=== PATIENT | male | born 1950 | race Caucasian/White ===

== ENCOUNTER 2018-11-21 10:33 | Emergency (ER) | payer OTHER, MEDICARE ==
[~2018-11-21] VITALS: Ht 182.9 cm; Wt 106.6 kg
[2018-11-21] MEDS ORDERED: IBUP800 PO (12:56)
[2018-11-21] MEDS ORDERED: Robaxin-750750 MG PO (12:56)
== END 2018-11-21 13:07 | disposition home or self-care (01) ==
LOC: ER 10:33
DX: M25.511 Pain in right shoulder (principal); M25.521 Pain in right elbow; W01.0XXA Fall on same level from slipping, tripping and stumbling without subsequent striking against object, initial encounter; Z88.8 Allergy status to other drugs, medicaments and biological substances; Z91.013 Allergy to seafood; I10 Essential (primary) hypertension; E11.9 Type 2 diabetes mellitus without complications; F41.9 Anxiety disorder, unspecified
CPT/HCPCS: 73030; 73080; 99283-25

== ENCOUNTER 2020-04-29 16:36 | Inpatient (IN) | payer OTHER ==
[~2020-04-29] VITALS: Ht 182.9 cm; Wt 107.4 kg
[~2020-04-29 16:36] MED LIST: IBUP800 PO; Robaxin-750750 MG PO
[2020-04-29 17:27] LABS: BASOPHILS ABSOLUTE AUTO 0.04 K/mm3 (0.00-0.23); BASOPHILS PERCENT AUTO 0 % (0-2); EOSINOPHILS PERCENT AUTO 0 % (0-6); Hematocrit 35.6 % (37.0-53.0); IMMATURE GRAN ABSOLUTE AUTO 0.12 K/mm3 (0.00-0.10); IMMATURE GRAN PERCENT AUTO 1 % (0-1); LYMPHOCYTES ABSOLUTE AUTO 0.73 K/mm3 (0.84-5.20); LYMPHOCYTES PERCENT AUTO 6 % (21-46); MONOCYTES ABSOLUTE AUTO 0.95 K/mm3 (0.16-1.47); MONOCYTES PERCENT AUTO 7 % (4-13); Mean Corpuscular HGB 29.9 pg (26.0-34.0); Mean Corpuscular HGB Conc 33.7 g/dL (31.5-36.5); Mean Corpuscular Volume 89 fL (80-100); NEUTROPHILS ABSOLUTE AUTO 11.49 K/mm3 (1.96-9.15); NEUTROPHILS PERCENT AUTO 86 % (41-73); Platelet Count 183 K/mm3 (150-400); RDW Coefficient Variation 13.8 % (11.7-14.2); Red Blood Cell Count 4.02 M/mm3 (4.30-5.90); White Blood Cell Count 13.33 K/mm3 (4.00-11.30)
[2020-04-29 17:49] LABS: Alanine Aminotransfer (ALT/SGP 48 U/L (12-78); Albumin, Blood 3.1 g/dL (3.4-5.0); Albumin/Globulin Ratio 0.9 (0.8-1.8); Alk Phos 66 U/L (50-136); Anion Gap 9 mmol/L (6-16); Aspartate Aminotrans (AST/SGOT 26 U/L (12-37); Bilirubin, Total 1.1 mg/dL (0.1-1.0); Blood Urea Nitrogen 13 mg/dL (8-24); Bun/Creatinine Ratio 14.2 (12.0-20.0); CO2, Blood 23 mmol/L (21-32); Calcium, Blood 7.9 mg/dL (8.5-10.1); Chloride, Blood 102 mmol/L (98-108); Creatinine, Blood 0.92 mg/dL (0.60-1.20); Globulin, Blood 3.5 g/dL (2.2-4.0); Glomerular Filtration Rate >60 (60-); Glucose, Blood 249 mg/dL (70-99); Magnesium, Blood 1.4 mg/dL (1.6-2.4); Potassium, Blood 3.7 mmol/L (3.5-5.5); Sodium, Blood 134 mmol/L (136-145); Total Protein, Blood 6.6 g/dL (6.4-8.2)
[2020-04-29 17:57] LABS: Source, Urine Clean Catch
[2020-04-29 18:03] LABS: Appearance, Urine Hazy (Clear); Bilirubin, Urine Neg (Neg); Blood, Urine 4+ (Neg); Color, Urine Amber (P-Yellow); Glucose Qualitative, Urine 3+ (Neg); Ketones, Urine 3+ (Neg); Leukocyte Esterase, Urine 3+ (Neg); Nitrite, Urine Neg (Neg); Protein, Urine 3+ (Neg); Specific Gravity, Urine 1.025 (1.003-1.022); Urobilinogen, Urine 1+ (Normal)
[2020-04-29 18:21] LABS: Red Blood Cells, Urine 25-50 /hpf (0-2); White Blood Cells, Urine 50-100 /hpf (0-5)
[2020-04-29 18:22] LABS: Bacteria Mod /hpf; Squamous Epithelial Cells Not Seen /hpf (Few)
[2020-04-29] MEDS ORDERED: PRALUENT P75 MG/1 ML (20:12)
[2020-04-29] MEDS ORDERED: Aspir 8181 MG PO (20:13)
[2020-04-29] MEDS ORDERED: ALPR.5 (20:13)
[2020-04-29] MEDS ORDERED: VITAMIN D325 MC3 PO (20:14)
[2020-04-29] MEDS ORDERED: Lisinopril-Hct1 EAC4 PO (20:17)
[2020-04-29] MEDS ORDERED: BASAGLAR K100 UNIT/1 SC (20:18)
[2020-04-29] MEDS ORDERED: METF500 PO (20:19)
[2020-04-29] MEDS ORDERED: TRAZ150T57 PO (20:20)
[2020-04-29] MEDS ORDERED: OMEP20ER PO (20:20)
[2020-04-29] MEDS ORDERED: METO25ER PO (20:20)
--- NOTE | 2020-04-29 23:42 | NUR ---
PHYSICIAN COMMUNICATION CONTACTED PATIENT'S ADMITTING PHYSICIAN, DR BARNES, TO NOTIFY HIM THAT THE PATIENT WISHED TO HAVE HIS 50 UNITS LANTUS SC THAT HE TYPICALLY TAKES AT BEDTIME. DR BARNES ORDERED THE LANTUS.
--- NOTE | 2020-04-30 04:13 | NUR ---
PHYSICIAN COMMUNICATION CONTACTED LEAD EMBEDDED SOFTWARE ENGINEER PHYSICIAN, DR BARNES, AND NOTIFIED HIM THAT THE PATIENT WAS EXPERIENCING 10/10 HEADACHE AND CURRENT PAIN MEDS NOT EFFECTIVE. DR BARNES ORDERED 1 MG DILAUDED IV X1.
[2020-04-30 05:15] LABS: BASOPHILS ABSOLUTE AUTO 0.04 K/mm3 (0.00-0.23); BASOPHILS PERCENT AUTO 0 % (0-2); EOSINOPHILS ABSOLUTE AUTO 0.01 K/mm3 (0.00-0.68); EOSINOPHILS PERCENT AUTO 0 % (0-6); Hematocrit 32.8 % (37.0-53.0); Hemoglobin 10.7 g/dL (13.5-17.5); IMMATURE GRAN ABSOLUTE AUTO 0.11 K/mm3 (0.00-0.10); IMMATURE GRAN PERCENT AUTO 1 % (0-1); LYMPHOCYTES ABSOLUTE AUTO 1.73 K/mm3 (0.84-5.20); LYMPHOCYTES PERCENT AUTO 10 % (21-46); MONOCYTES ABSOLUTE AUTO 1.35 K/mm3 (0.16-1.47); MONOCYTES PERCENT AUTO 8 % (4-13); Mean Corpuscular HGB 28.5 pg (26.0-34.0); Mean Corpuscular HGB Conc 32.6 g/dL (31.5-36.5); Mean Corpuscular Volume 88 fL (80-100); NEUTROPHILS ABSOLUTE AUTO 14.23 K/mm3 (1.96-9.15); NEUTROPHILS PERCENT AUTO 82 % (41-73); Platelet Count 182 K/mm3 (150-400); RDW Coefficient Variation 13.9 % (11.7-14.2); RDW Standard Deviation 44.8 fL (35.1-46.3); Red Blood Cell Count 3.75 M/mm3 (4.30-5.90); White Blood Cell Count 17.47 K/mm3 (4.00-11.30)
[2020-04-30 05:49] LABS: Alanine Aminotransfer (ALT/SGP 38 U/L (12-78); Albumin, Blood 2.6 g/dL (3.4-5.0); Albumin/Globulin Ratio 0.7 (0.8-1.8); Alk Phos 55 U/L (50-136); Anion Gap 8 mmol/L (6-16); Aspartate Aminotrans (AST/SGOT 18 U/L (12-37); Bilirubin, Total 1.1 mg/dL (0.1-1.0); Blood Urea Nitrogen 12 mg/dL (8-24); Bun/Creatinine Ratio 13.7 (12.0-20.0); CO2, Blood 23 mmol/L (21-32); Calcium, Blood 7.7 mg/dL (8.5-10.1); Chloride, Blood 100 mmol/L (98-108); Creatinine, Blood 0.88 mg/dL (0.60-1.20); Globulin, Blood 3.5 g/dL (2.2-4.0); Glomerular Filtration Rate >60 (60-); Glucose, Blood 255 mg/dL (70-99); Potassium, Blood 3.8 mmol/L (3.5-5.5); Sodium, Blood 131 mmol/L (136-145); Total Protein, Blood 6.1 g/dL (6.4-8.2)
--- NOTE | 2020-04-30 06:16 | NUR ---
SHIFT SUMMARY PATIENT ARRIVED TO ROOM 337 VIA STRETCHER. HE IS ALERT AND ORIENTED AND WAS ABLE TO TRANSFER BETWEEN STRETCHER AND BED HIMSELF. HE HAS HAD NO COMPLAINTS OF SHORTNESS OF BREATH. MEDICATED PER EMAR FOR PAIN NEEDED. IV PATENT AND INFUSING. BED IN LOWEST POSITION WITH WHEELS LOCKED AND ALARM ON. CALL LIGHT WITHIN REACH. REPORT GIVEN TO ONCOMING RN.
--- NOTE | 2020-04-30 18:27 | NUR ---
SHIFT SUMMARY MEDICATED FOR PAIN PER EMAR SEVERAL TIMES THIS SHIFT. PT HAS A GOOD APPETITE AND EATING/DRINKING PLENTY. MA PATENT AND DRAINING. IVF INFUSING PER EMAR. NO ACUTE CHANGES AT THIS TIME. WILL CONTINUE TO MONITOR FOR CHANGES. CALL LIGHT IN REACH.
--- NOTE | 2020-05-01 04:35 | NUR ---
ACADEMIC REGISTRAR SUMMARY PT A&OX4, ABLE TO MAKE NEEDS KNOWN. PLEASANT AND COOPERATIVE TO CARE. MEDICATED FOR PAIN PER EMAR. NO C/O CP, SOB, OR N&V. NO ACUTE CHANGES NOTED TO PT THIS SHIFT. PT SLEEPING IN BED AT THIS TIME. MA PATENT AND DRAINING. BED AT LOWEST POSITION. CALL LIGHT WITHIN REACH.
--- NOTE | 2020-05-01 04:48 | NUR ---
STONE SETTER METAL OPTICAL FRAMES SUMMARY PT ADMITTED FROM ED AT APPROX 2102. RECEIVED REPORT FROM SILVIA ZULUAGA. PT A&OX4, ABLE TO MAKE NEEDS KNOWN, PLEASANT AND COOPERATIVE TO CARE. PT MEDICATED FOR PAIN PER EMAR. NO C/O CP, SOB, OR N&V. PT HAS WOUND DRESSINGS TO R FOOT AND L GREAT TOE UPON ADMISSION TO UNIT, PER REPORT, WOUND DRESSINGS PLACED IN ED. OFFERED TO CHANGE WOUND DRESSING UPON ADMISSION TO UNIT FOR ASSESSMENT, PT REFUSED D/T DISCOMFORT TO AFFECTED AREAS. PT CALM AND RESTED IN BED AT THIS TIME. PT NPO AFTER MIDNIGHT ORDERED. BED AT LOWEST POSITION. CALL LIGHT WITHIN REACH.
[2020-05-01 05:14] LABS: Hematocrit 32.6 % (37.0-53.0); Hemoglobin 10.7 g/dL (13.5-17.5); Mean Corpuscular HGB 29.1 pg (26.0-34.0); Mean Corpuscular HGB Conc 32.8 g/dL (31.5-36.5); Mean Corpuscular Volume 89 fL (80-100); Mean Platelet Volume 10.3 fL (9.1-12.4); Platelet Count 178 K/mm3 (150-400); RDW Coefficient Variation 13.8 % (11.7-14.2); Red Blood Cell Count 3.68 M/mm3 (4.30-5.90)
[2020-05-01 05:38] LABS: Albumin, Blood 2.4 g/dL (3.4-5.0); Anion Gap 5 mmol/L (6-16); Blood Urea Nitrogen 16 mg/dL (8-24); Bun/Creatinine Ratio 17.4 (12.0-20.0); CO2, Blood 28 mmol/L (21-32); Calcium, Blood 7.9 mg/dL (8.5-10.1); Chloride, Blood 104 mmol/L (98-108); Creatinine, Blood 0.92 mg/dL (0.60-1.20); Glomerular Filtration Rate >60 (60-); Glucose, Blood 164 mg/dL (70-99); Magnesium, Blood 2.1 mg/dL (1.6-2.4); Phosphorus, Blood 2.3 mg/dL (2.5-4.9); Potassium, Blood 3.5 mmol/L (3.5-5.5); Sodium, Blood 137 mmol/L (136-145)
--- NOTE | 2020-05-01 18:03 | NUR ---
SHIFT SUMMARY MEDICATED FOR PENIS/GROIN PAIN PER EMAR X2 THIS SHIFT. MA PATENT AND DRAINING. PT HAS A GOOD APPETITE AND DRINKING WELL. PT ANXIOUS THIS AFTERNOON WHEN TALKING ABOUT POSSIBLY HAVING PROSTATE CANCER. XANAX WAS GIVEN AND PT CALMER. NO ACUTE CHANGES AT THIS TIME. CALL LIGHT IN REACH. WILL CONTINUE TO MONITOR AND REPORT TO ONCOMING RN.
--- NOTE | 2020-05-01 22:22 | NUR ---
STATED THAT HE HAD AN "ERECTION" WHN IN THE BATHROOM, YAHIR THOUGH HE HAS A CATHETER IN PLACE. VOICED CONCERN HE HAS BEEN DX'D WITH PROSTATE PROBLEMS. VOICED ERECTION HAD WENT AWAY BUT WANTED ME TO CHART IT SO THE MD COULD KNOW. CALL LIGHT IN REACH
[2020-05-02 05:01] LABS: Hematocrit 31.9 % (37.0-53.0); Hemoglobin 10.4 g/dL (13.5-17.5); Mean Corpuscular HGB 28.5 pg (26.0-34.0); Mean Corpuscular HGB Conc 32.6 g/dL (31.5-36.5); Mean Corpuscular Volume 87 fL (80-100); Mean Platelet Volume 10.3 fL (9.1-12.4); Platelet Count 201 K/mm3 (150-400); RDW Coefficient Variation 13.5 % (11.7-14.2); RDW Standard Deviation 43.5 fL (35.1-46.3); Red Blood Cell Count 3.65 M/mm3 (4.30-5.90); White Blood Cell Count 8.56 K/mm3 (4.00-11.30)
--- NOTE | 2020-05-02 05:03 | NUR ---
SHIFT SUMMARY AWAKE AT INTERVALS WITH C/O PAIN OF GROIN. VOICED HAD AN ERECTION WITH CATHETER IN AND HAS HAD DISCOMFORT SINCE. MD WAS NOTIFIED AND ADDED IV FENTANYL 25 - 50 MCG Q 4 HR PRN. SEE MAR FOR DETAILS. MED TELE SINUS JULIANE IN THE 50'S. CALL LIGHT IN REACH.
[2020-05-02 05:18] LABS: Albumin, Blood 2.3 g/dL (3.4-5.0); Anion Gap 7 mmol/L (6-16); Blood Urea Nitrogen 14 mg/dL (8-24); CO2, Blood 27 mmol/L (21-32); Calcium, Blood 8.5 mg/dL (8.5-10.1); Chloride, Blood 105 mmol/L (98-108); Creatinine, Blood 0.93 mg/dL (0.60-1.20); Glomerular Filtration Rate >60 (60-); Glucose, Blood 93 mg/dL (70-99); Phosphorus, Blood 4.1 mg/dL (2.5-4.9); Potassium, Blood 3.3 mmol/L (3.5-5.5); Sodium, Blood 139 mmol/L (136-145)
[2020-05-02] MEDS ORDERED: DILAU (14:26)
[2020-05-02] MEDS ORDERED: LEVO750 PO (14:27)
[2020-05-02] MEDS ORDERED: LISI20 PO (14:28)
[2020-05-02] MEDS ORDERED: POLYETHYLENE G500 G1 PO (14:30)
[2020-05-02] MEDS ORDERED: Senna-Extra17.2 MG PO (14:32)
[2020-05-02] MEDS ORDERED: TAMS.4ER PO (14:33)
[2020-05-02] MEDS ORDERED: VISBIOME 112.51 EACH PO (14:35)
--- NOTE | 2020-05-02 17:23 | NUR ---
DISCHARGE PT DISCHARGED TO HOME. THIS RN EXPLAINED DISCHARGE INSTRUCTIONS AND MEDICATIONS TO PT. HE REPORTS HE UNDERSTANDS. IV REMOVED WITHOUT DIFFICULTY. PT STATES HE HAS A UROLOGY APPT FOR MAY 13, 2020 AT 1000 A.M. THIS RN NOTIFIED EVAPORATOR SUPERVISOR OF THIS. PT HAD CATHETER REMOVED AND VOIDED 350 ML. [facility] [place] PER PT REQUEST. PT INDEPENDENT TO PRIVATE VEHICLE. BELONGINGS WITH PT.
== END 2020-05-02 16:45 | disposition home or self-care (01) | DRG 871 ==
LOC: ER 16:36 → MEDS 16:37 → ER 20:50 → MEDS 20:50
PROVIDERS: Internal Medicine; Physician Assistant; ADMIT Internal Medicine
DX: A41.9 Sepsis, unspecified organism (principal); J18.9 Pneumonia, unspecified organism; E87.1 Hypo-osmolality and hyponatremia; E87.2 Acidosis; I10 Essential (primary) hypertension; E11.9 Type 2 diabetes mellitus without complications; F41.9 Anxiety disorder, unspecified; I16.0 Hypertensive urgency; E66.01 Morbid (severe) obesity due to excess calories; R33.8 Other retention of urine; C61 Malignant neoplasm of prostate; E83.39 Other disorders of phosphorus metabolism; I25.10 Atherosclerotic heart disease of native coronary artery without angina pectoris; K59.00 Constipation, unspecified; K21.9 Gastro-esophageal reflux disease without esophagitis; Z85.818 Personal history of malignant neoplasm of other sites of lip, oral cavity, and pharynx; Z90.81 Acquired absence of spleen; Z95.1 Presence of aortocoronary bypass graft; Z95.2 Presence of prosthetic heart valve; Z90.49 Acquired absence of other specified parts of digestive tract; Z98.890 Other specified postprocedural states; Z91.041 Radiographic dye allergy status; Z91.013 Allergy to seafood; Z68.30 Body mass index [BMI] 30.0-30.9, adult
CPT/HCPCS: 36415; 51798; 70450; 71046; 80053; 80069; 81001; 82947; 83036; 83605; 83735; 84145; 85025; 85027; 87040; 87086; 96361; 96365; 96367; 96372; 96375; 96376; 99285-25; A9270; G0103; G0378; J0696; J1170; J1650; J1885; J2405; J2543; J3010; J3475; J7030

== ENCOUNTER 2022-03-29 03:29 | Emergency (ER) | payer OTHER ==
[~2022-03-29] VITALS: Ht 185.4 cm; Wt 104.3 kg
[~2022-03-29 03:29] MED LIST changes: +ALPR.5; +Aspir 8181 MG PO; +BASAGLAR K100 UNIT/1 SC; +DILAU; +LEVO750 PO; +LISI20 PO; +Lisinopril-Hct1 EAC4 PO; +METF500 PO; +METO25ER PO; +OMEP20ER PO; +POLYETHYLENE G500 G1 PO; +PRALUENT P75 MG/1 ML; +Senna-Extra17.2 MG PO; +TAMS.4ER PO; +TRAZ150T57 PO; +VISBIOME 112.51 EACH PO; +VITAMIN D325 MC3 PO
[2022-03-29 04:52] LABS: Influenza A, PCR NEGATIVE (NEGATIVE); Influenza B, PCR NEGATIVE (NEGATIVE); Resp Syncytial Virus, PCR NEGATIVE (NEGATIVE); SARS-Cov-2 (COVID-19) PCR, MMC NEGATIVE (NEGATIVE)
[2022-03-29 04:54] LABS: BASOPHILS ABSOLUTE AUTO 0.05 K/mm3 (0.00-0.23); BASOPHILS PERCENT AUTO 0 % (0-2); EOSINOPHILS ABSOLUTE AUTO 0.26 K/mm3 (0.00-0.68); EOSINOPHILS PERCENT AUTO 2 % (0-6); Hematocrit 37.6 % (37.0-53.0); Hemoglobin 13.1 g/dL (13.5-17.5); IMMATURE GRAN ABSOLUTE AUTO 0.18 K/mm3 (0.00-0.10); IMMATURE GRAN PERCENT AUTO 2 % (0-1); LYMPHOCYTES ABSOLUTE AUTO 4.17 K/mm3 (0.84-5.20); LYMPHOCYTES PERCENT AUTO 35 % (21-46); MONOCYTES ABSOLUTE AUTO 0.81 K/mm3 (0.16-1.47); MONOCYTES PERCENT AUTO 7 % (4-13); Mean Corpuscular HGB 30.5 pg (26.0-34.0); Mean Corpuscular HGB Conc 34.8 g/dL (31.5-36.5); Mean Corpuscular Volume 88 fL (80-100); Mean Platelet Volume 9.7 fL (9.1-12.4); NEUTROPHILS ABSOLUTE AUTO 6.45 K/mm3 (1.96-9.15); NEUTROPHILS PERCENT AUTO 54 % (41-73); Platelet Count 255 K/mm3 (150-400); RDW Coefficient Variation 13.2 % (11.7-14.2); RDW Standard Deviation 42.1 fL (35.1-46.3); Red Blood Cell Count 4.29 M/mm3 (4.30-5.90); White Blood Cell Count 11.92 K/mm3 (4.00-11.30)
[2022-03-29 05:12] LABS: Bun/Creatinine Ratio 31.2 (12.0-20.0); Calcium, Blood 8.7 mg/dL (8.5-10.1); Creatinine, Blood 0.96 mg/dL (0.60-1.20); Potassium, Blood 3.6 mmol/L (3.5-5.5)
[2022-03-29] MEDS ORDERED: DOXY100 PO (05:24)
[2022-03-29] MEDS ORDERED: PRED20 PO (05:24)
[2022-03-29] MEDS ORDERED: ALBU90OI INH (05:30)
== END 2022-03-29 05:37 | disposition home or self-care (01) ==
LOC: ER 03:29
PROVIDERS: Emergency Medicine
DX: J43.9 Emphysema, unspecified (principal); I10 Essential (primary) hypertension; E11.9 Type 2 diabetes mellitus without complications; K21.9 Gastro-esophageal reflux disease without esophagitis; I25.10 Atherosclerotic heart disease of native coronary artery without angina pectoris; Z20.822 Contact with and (suspected) exposure to COVID-19; Z91.048 Other nonmedicinal substance allergy status; Z91.013 Allergy to seafood; Z79.4 Long term (current) use of insulin; Z79.899 Other long term (current) drug therapy
CPT/HCPCS: 0241U; 71045; 80048; 85025

== ENCOUNTER 2022-07-15 10:03 | Emergency (ER) | payer OTHER ==
[~2022-07-15] VITALS: Ht 185.4 cm; Wt 106.6 kg
[~2022-07-15 10:03] MED LIST changes: +ALBU90OI INH; +Almacone Liqui355 ML PO; +DOXY100 PO; +METO5A PO; +ONDA4ODT MM; +PRED20 PO
[2022-07-15 10:56] LABS: BASOPHILS ABSOLUTE AUTO 0.05 K/mm3 (0.00-0.23); BASOPHILS PERCENT AUTO 1 % (0-2); EOSINOPHILS ABSOLUTE AUTO 0.35 K/mm3 (0.00-0.68); EOSINOPHILS PERCENT AUTO 4 % (0-6); Hematocrit 38.1 % (37.0-53.0); Hemoglobin 12.7 g/dL (13.5-17.5); IMMATURE GRAN ABSOLUTE AUTO 0.11 K/mm3 (0.00-0.10); IMMATURE GRAN PERCENT AUTO 1 % (0-1); LYMPHOCYTES ABSOLUTE AUTO 2.42 K/mm3 (0.84-5.20); LYMPHOCYTES PERCENT AUTO 27 % (21-46); MONOCYTES ABSOLUTE AUTO 0.54 K/mm3 (0.16-1.47); MONOCYTES PERCENT AUTO 6 % (4-13); Mean Corpuscular HGB Conc 33.3 g/dL (31.5-36.5); Mean Corpuscular Volume 90 fL (80-100); Mean Platelet Volume 10.3 fL (9.1-12.4); NEUTROPHILS ABSOLUTE AUTO 5.59 K/mm3 (1.96-9.15); NEUTROPHILS PERCENT AUTO 62 % (41-73); Platelet Count 219 K/mm3 (150-400); RDW Coefficient Variation 13.2 % (11.7-14.2); RDW Standard Deviation 43.1 fL (35.1-46.3); Red Blood Cell Count 4.23 M/mm3 (4.30-5.90); White Blood Cell Count 9.06 K/mm3 (4.00-11.30)
[2022-07-15 11:17] LABS: Albumin, Blood 3.5 g/dL (3.4-5.0); Albumin/Globulin Ratio 0.9 (0.8-1.8); Bilirubin, Total 0.3 mg/dL (0.1-1.0); Bun/Creatinine Ratio 21.1 (12.0-20.0); Calcium, Blood 8.7 mg/dL (8.5-10.1); Creatinine, Blood 0.95 mg/dL (0.60-1.20); Globulin, Blood 3.7 g/dL (2.2-4.0); Total Protein, Blood 7.2 g/dL (6.4-8.2)
[2022-07-15] MEDS ORDERED: Percocet 5-3251 EACH PO (11:33)
[2022-07-15] MEDS ORDERED: DOC250 PO (11:34)
[2022-07-15 11:45] VITALS: BP 113/58
== END 2022-07-15 12:03 | disposition home or self-care (01) ==
LOC: ER 10:03
PROVIDERS: Emergency Medicine
DX: S22.32XA Fracture of one rib, left side, initial encounter for closed fracture (principal); I70.8 Atherosclerosis of other arteries; I10 Essential (primary) hypertension; E11.9 Type 2 diabetes mellitus without complications; I25.10 Atherosclerotic heart disease of native coronary artery without angina pectoris; K21.9 Gastro-esophageal reflux disease without esophagitis; Z85.21 Personal history of malignant neoplasm of larynx; Z91.041 Radiographic dye allergy status; Z91.013 Allergy to seafood; Z79.82 Long term (current) use of aspirin; Z79.84 Long term (current) use of oral hypoglycemic drugs; Z79.52 Long term (current) use of systemic steroids; Z79.899 Other long term (current) drug therapy; W01.198A Fall on same level from slipping, tripping and stumbling with subsequent striking against other object, initial encounter
CPT/HCPCS: 71046; 74177; 80053; 85025; J1200; J2405; J3010; Q9967

== ENCOUNTER 2023-11-17 06:17 | Day surgery (SDC) | payer OTHER ==
[~2023-11-17] VITALS: Ht 185.4 cm; Wt 103.6 kg
[~2023-11-17 06:17] MED LIST changes: +DOC250 PO; +Lactated Ringer's 1,000 ML IV ONE; +Percocet 5-3251 EACH PO
[2023-11-17] MEDS ORDERED: NS 50 ML IV ONE (06:22)
[2023-11-17] MEDS ORDERED: CeFAZolin Sodium 2,000 MG VIAL ONE (06:22)
[2023-11-17] MEDS ORDERED: LOSARTAN-HCTZ1 EACH PO (06:57)
[2023-11-17] MEDS ORDERED: TADA10TA (07:02)
[2023-11-17] MEDS ORDERED: Lactated Ringer's 1,000 ML IV ONE (07:05)
[2023-11-17] MEDS ORDERED: Midazolam HCl 1MG / ML 2ML Vial ONE (07:15)
[2023-11-17] MEDS ORDERED: FentaNYL Citrate 50 MCG/ML 2 ML Injection ONE ×2 (07:17→10:27)
[2023-11-17] MEDS ORDERED: Etomidate 2MG / ML 10ML Vial ONE (07:18)
--- NOTE | 2023-11-17 07:34 | NUR ---
11/17/23 0734 Mylene Singh CRNA, M AT BEDSIDE FOR INTERSCALENE NERVE BLOCK. T/O AT 0726 START 0728 STOP TIME 0730 PT TOLERATED PROCEDURE WELL
[2023-11-17] MEDS ORDERED: EPINEPhrine HCl 1 MG/ML 1ML Amp XX ONE (08:14)
[2023-11-17] MEDS ORDERED: SuccINYLCHOLINE Chloride 100 MG/5 ML 5MLSYR ONE (09:07)
[2023-11-17] MEDS ORDERED: Ondansetron HCl 2 MG / ML 2ML Vial ONE (09:07)
[2023-11-17] MEDS ORDERED: Dexamethasone Sod Phos 10 MG/ML 1ML VIAL ONE (09:07)
[2023-11-17] MEDS ORDERED: Bupivacaine 0.5% HCl 5 MG/ML 30MLVIAL ONE (09:08)
[2023-11-17] MEDS ORDERED: Droperidol 5 mg/2 ml Vial ONE (09:53)
[2023-11-17] MEDS ORDERED: OxyCODONE HCL 5 MG TAB ONE (10:13)
--- NOTE | 2023-11-17 10:20 | NUR ---
11/17/23 1020 Amanda Cooper PT TO STEP DOWN AT 0941 ON SUPPLIMENTAL 02 AT 2L VIA FACE TENT. O2 DC'D AT 0950; O2 SATS 95% ON ROOM AIR. PT TRANSFERRED TO THE CHAIR WITH STAND BY ASSIST FROM RN. WARM BLANKETS PROVIDED, FEET ELEVATED. VSS. PT STATED HE FELT "A LITTLE NAUSEATED" UPON TRANSFERRING. NAUSEA HAS NOW RESOLVED. AT CHAIRSIDE AT 0952. PO FLUIDS AND CRACKERS GIVEN. REPORT GIVEN TO NURSE JOYNER AT 1010.
[2023-11-17 11:27] VITALS: BP 135/79
== END 2023-11-17 11:38 | disposition home or self-care (01) ==
LOC: ORSCSDS 06:17
PROVIDERS: Orthopaedic Surgery
PROC: 0LM14ZZ Reattachment of Right Shoulder Tendon, Percutaneous Endoscopic Approach (ICD-10-PCS; principal; 2023-11-17 07:30)
PROC: 0RNJ4ZZ Release Right Shoulder Joint, Percutaneous Endoscopic Approach (ICD-10-PCS; principal; 2023-11-17 07:30)
DX: M75.111 Incomplete rotator cuff tear or rupture of right shoulder, not specified as traumatic (principal); M71.9 Bursopathy, unspecified; M75.41 Impingement syndrome of right shoulder; I10 Essential (primary) hypertension; E11.9 Type 2 diabetes mellitus without complications; K21.9 Gastro-esophageal reflux disease without esophagitis; G47.33 Obstructive sleep apnea (adult) (pediatric); Z79.899 Other long term (current) drug therapy; E78.5 Hyperlipidemia, unspecified; Z79.4 Long term (current) use of insulin
CPT/HCPCS: 82947; A9270; C1713; J0171; J0330; J0690; J1100; J1790; J2250; J2405; J3010; J7120